=== PATIENT | female | born 1995 | race Two or more races ===

== ENCOUNTER 2017-07-26 18:49 | Inpatient (IN) | payer OTHER ==
[~2017-07-26] VITALS: Ht 154.9 cm; Wt 50.8 kg
[2017-07-26] MEDS ORDERED: PRENATAL 19 TA1 EAC1 PO (19:28)
[2017-07-29] MEDS ORDERED: CODE1TAB37 PO (09:04)
== END 2017-07-29 11:37 | DRG 775 ==
LOC: OB/GYN 18:49 → LDR 18:49 → OB/GYN 07-27 12:38
PROC: 10E0XZZ Delivery of Products of Conception, External Approach (ICD-10-PCS; principal; 2017-07-27)
PROC: 0UQMXZZ Repair Vulva, External Approach (ICD-10-PCS; 2017-07-27)
PROC: 3E0P7VZ Introduction of Hormone into Female Reproductive, Via Natural or Artificial Opening (ICD-10-PCS; 2017-07-27)
PROC: 3E033VJ Introduction of Other Hormone into Peripheral Vein, Percutaneous Approach (ICD-10-PCS; 2017-07-27)
PROC: 10907ZC Drainage of Amniotic Fluid, Therapeutic from Products of Conception, Via Natural or Artificial Opening (ICD-10-PCS; 2017-07-27)
PROC: 4A033R1 Measurement of Arterial Saturation, Peripheral, Percutaneous Approach (ICD-10-PCS; 2017-07-27)
PROC: 4A1HXCZ Monitoring of Products of Conception, Cardiac Rate, External Approach (ICD-10-PCS; 2017-07-27)
DX: O71.4 Obstetric high vaginal laceration alone (principal); O76 Abnormality in fetal heart rate and rhythm complicating labor and delivery; O99.02 Anemia complicating childbirth; Z3A.37 37 weeks gestation of pregnancy; Z37.0 Single live birth